=== PATIENT | female | born 1970 | race Two or more races ===

== ENCOUNTER 2024-04-07 06:22 | Day surgery (SDC) | payer BC, SELFPAY ==
--- NOTE | 2024-04-05 13:56 | PTCARENOTE ---
Abn ECG, Dr. Jaeger notified, no further actions requested.
[2024-04-07] VITALS (10 sets, daily range): BP systolic 85–143; BP diastolic 42–84; BMI 46.7
[2024-04-07] MEDS: TYLENOL 1000 MG PO (09:15)
[2024-04-07] MEDS: CELEBREX 200 MG PO (09:15)
[2024-04-07] MEDS: NORMOSOL-R 1000 IV (09:25)
== END 2024-04-07 12:11 | disposition home or self-care (01) ==
LOC: SDS 06:22
PROVIDERS: ATTENDING PHYSICIAN Orthopaedic Surgery Hand Surgery
DX: S63.418A Traumatic rupture of collateral ligament of other finger at metacarpophalangeal and interphalangeal joint, initial encounter (principal); X58.XXXA Exposure to other specified factors, initial encounter
CPT/HCPCS: 26540; C1713